=== PATIENT | female | born 1995 | race African-American/Black ===

== ENCOUNTER 2017-03-04 10:56 | Emergency (ER) | payer OTHER ==
[2017-03-04 11:14] VITALS: BMI 29.7
--- NOTE | 2017-03-04 11:45 | DR.FI ---
HPI - Time Seen Time seen: 11:10 - PCP Primary Care Physician: ESTELA - Complaint Chief Complaint:: "MY MOUTH STARTED TWISTING THIS MORNING" Chief Complaint Doctors Comments: Patient states that her lower jaw started twitching and deviated to the right. She denies fever,vomitng or diarrhea. She denies any neurological problems. She does admits to loosing her baby two months ago at 2 months pregnent. Self Treatment fo Chief Complaint: NONE - Source History Provided: Patient - Mode of Arrival Mode of Arrival: EMS - Timing Onset of Chief Complaint: 03/04/17 PMH - PMH Past Medical History: No Past Surgical History: No - Family History History of Family Medical Conditions: Yes Family Medical History: Hypertension - Social History Does patient currently use any type of tobacco product: No Have you used tobacco products in the last 12 months: No Type of Tobacco Use: None Does any household member use tobacco: No Alcohol Use: None Do you use any recreational Drugs:: No Lives With: Alone Lives Where: Home - infectious screening In the last 2 months have you had wt loss of >10#?: NO Have you had fever, night sweats or hemotysis?: No Have you traveled outside the country in the last 6 months?: No Isolation: Standard ROS - Review of Systems Constitutional: No Symptoms Reported Eyes: No Symptoms Reported ENTM: No Symptoms Reported Respiratoy: No Symptoms Reported Cardiovascular: No Symptoms Reported Gastrointestinal/Abdominal: No Symptoms Reported Genitourinary: No Symptoms Reported Neurological: No Symptoms Reported, Speech Problem Musculoskeletal: No Symptoms Reported Integumentary: No Symptoms Reported Hematologic/Lymphatic: No Symptoms Reported Endocrine: No Symptoms Reported Psychiatric: No Symptoms Reported All Other Systems: Reviewed and Negative PE - Vital Signs Vitals: Temperature 98.1 F Pulse Rate [Apical] 91 Pulse Rate 94 Respiratory Rate 18 Blood Pressure [Right Arm] 167/96 Blood Pressure 192/93 O2 Sat by Pulse Oximetry 100 - General Limitations: No Limitations General Appearance: Alert, In No Apparent Distress - Head Head Exam: Normal Inspection, Atraumatic - Eyes Eye exam: Normal Appearance, PERRL, EOMI Eyelids: Normal Inspection: Bilateral Pupils: Regular, Round: Bilateral Sclera/Conjunctival: Normal Inspection: Bilateral Anterior chamber: Cell/flare: Bilateral Posterior Chamber: Deferred: Bilateral - ENT ENT Exam: Normal Exam, Normal Oropharynx External Ear Exam: Normal External Inspection TM/Canal Exam: Bilateral Normal Nose Exam: Normal Nose Exam Mouth Exam: Normal Inspection Teeth Exam: Other (impacted left wisdom tooth) Throat Exam: Normal Inspection - Neck Neck Exam: Normal Inspection - Chest Chest Inspection: Normal Inspection - Respiratory Respiratory Exam: Normal Lung Sounds Bilat Respiratory Exam: Bilateral Clear to Auscultation - Cardiovascular Cardiovascular Exam: Regular Rate, Normal Rhythm - Abdominal Exam Abdominal Exam: Normal Inspection, Normal Bowel Sounds Abdominal Tenderness: negative: RUQ, RLQ, LUQ, LLQ, Epigastrium, Suprapubic, Diffuse, Mild, Moderate, Severe, Other - Extremities Extremities Exam: Normal Inspection - Back Back Exam: Normal Inspection - Neurologic Neurological Exam: Alert, Oriented X3, CN II-XII Intact Patient Oriented To: Person, Place Speech: Expressive Aphasia Cranial Nerve Exam: EOM Function (II, III, IV, ): Normal, Facial Sensation (V) : Normal, Facial Palsy (VII): Normal, Gag reflex (XI): Normal, Tongue Deviation : Normal - Psychiatric Psychiatric Exam: Normal Affect - Skin Skin Exam: Warm, Dry, Intact Type of Lesion: Rash Course - Treatment Treatment: NIH stroke scale 0 - Reevaluation 1st: Improved ROR - Labs Reviewed Result Diagrams: 03/04/17 11:40 03/04/17 11:40 Laboratory: WBC 9.4 X10^3/uL (3.6-10.0) 03/04/17 11:40 RBC 4.65 X10^6/uL (3.5-5.4) 03/04/17 11:40 Hgb 13.1 g/dL (12.0-16.0) 03/04/17 11:40 Hct 39.8 % (36.0-47.0) 03/04/17 11:40 MCV 85.6 fL (80.0-100.0) 03/04/17 11:40 MCH 28.2 pg (27.0-34.0) 03/04/17 11:40 MCHC 33.0 g/dL (33.0-35.0) 03/04/17 11:40 RDW 13.9 % (11.6-16.5) 03/04/17 11:40 Plt Count 260 X10^3/uL (150.0-450.0) 03/04/17 11:40 MPV 9.1 fL (7.4-11.0) 03/04/17 11:40 Neut % 60.7 % (42.0-75.0) 03/04/17 11:40 Lymph % 27.0 % (21.0-51.0) 03/04/17 11:40 Burt % 6.4 % (0.0-13.0) 03/04/17 11:40 Eos % 5.3 % (0.9-2.9) H 03/04/17 11:40 Baso % 0.6 % (0.2-1.0) 03/04/17 11:40 Neut # 5.7 x10^3/uL (2.2-4.8) H 03/04/17 11:40 Lymph # 2.5 X10^3/uL (1.3-2.9) 03/04/17 11:40 Burt # 0.6 x10^3/uL (0.3-0.8) 03/04/17 11:40 Eos # 0.5 x10^3/uL (0.0-0.2) H 03/04/17 11:40 Baso # 0.1 X10^3/uL (0.0-0.1) 03/04/17 11:40 Absolute Nucleated RBC 0.1 /100WBC 03/04/17 11:40 Sodium 140 mmol/L (136-145) 03/04/17 11:40 Corrected Sodium TNP 03/04/17 11:40 Potassium 3.8 mmol/L (3.5-5.1) 03/04/17 11:40 Chloride 104 mmol/L (98-107) 03/04/17 11:40 Carbon Dioxide 28.6 mmol/L (21-32) 03/04/17 11:40 BUN 11 mg/dL (7-18) 03/04/17 11:40 Creatinine 0.82 mg/dL (0.55-1.02) 03/04/17 11:40 Est GFR (MDRD) Af Amer > 60 (>60) 03/04/17 11:40 Est GFR (MDRD) Non-Af > 60 (>60) 03/04/17 11:40 Glucose 102 mg/dL (65-99) H 03/04/17 11:40 Calcium 9.0 mg/dL (8.5-10.1) 03/04/17 11:40 Specimen Type Clean catch urine 03/04/17 12:05 Urine Color Yellow (YELLOW) 03/04/17 12:05 Urine Appearance Clear (CLEAR) 03/04/17 12:05 Urine pH 8.0 (5.0 - 8.0) 03/04/17 12:05 Ur Specific [place] 1.010 (1.000-1.030) 03/04/17 12:05 Urine Protein 1+ (NEGATIVE) 03/04/17 12:05 Urine Glucose (UA) Negative (NEGATIVE) 03/04/17 12:05 Urine Ketones Negative (NEGATIVE) 03/04/17 12:05 Urine Occult Blood 5+ (NEGATIVE) 03/04/17 12:05 Urine Nitrite Negative (NEGATIVE) 03/04/17 12:05 Urine Bilirubin Negative (NEGATIVE) 03/04/17 12:05 Urine Urobilinogen Normal (NORMAL) 03/04/17 12:05 Ur Leukocyte Esterase Negative (NEGATIVE) 03/04/17 12:05 Urine RBC 5-10 /HPF (NEGATIVE) 03/04/17 12:05 Urine WBC 0-3 /HPF (NEGATIVE) 03/04/17 12:05 Ur Squamous Epith Cells Moderate /HPF (NEGATIVE) 03/04/17 12:05 Urine Bacteria Trace /HPF (NEGATIVE) 03/04/17 12:05 Ur Culture Indicated? No/not indicated 03/04/17 12:05 Urine Opiates Screen Negative (NEG=<300) 03/04/17 12:05 Urine Methadone Screen Negative (NEG=<300) 03/04/17 12:05 Ur Barbiturates Screen Negative (NEG=<200) 03/04/17 12:05 Ur Phencyclidine Scrn Negative (NEG=<25) 03/04/17 12:05 Ur Amphetamines Screen Negative (NEG=<1000) 03/04/17 12:05 U Benzodiazepines Scrn Positive (NEG=<200) A 03/04/17 12:05 Urine Cocaine Screen Negative (NEG=<300) 03/04/17 12:05 U Marijuana (THC) Screen Negative (NEG=<50) 03/04/17 12:05 Streptococcus Screen Negative (NEGATIVE) 03/04/17 12:05 - XRAY XRAY Interpreted by: Radiologist (Brain CT: The ventircles are normal. No intracranial hemorrhage or edema is seen. There is no extra-axial fluid collection or mass. The bones are intact. There is mucosal thickening in the ethmoid and maxillary sinuses.. Impression:No acute intracranial abnormality seen...Mild chronic sinusitis) - Diagnosis Discharge Problem: Chronic sinusitis of both maxillary sinuses, Impacted tooth, Hemifacial spasm, Elevated BP without diagnosis of hypertension - Discharge Plan Condition: Stable - Follow ups/Referrals Follow ups/Referrals: NFD,None [Primary Care Provider] - 3 days - Instructions
[2017-03-04 11:51] LABS: BASOPHILS # (AUTO) 0.1 X10^3/uL (0.0-0.1); BASOPHILS % (AUTO) 0.6 % (0.2-1.0); EOSINOPHILS # (AUTO) 0.5 x10^3/uL (0.0-0.2); EOSINOPHILS % (AUTO) 5.3 % (0.9-2.9); HEMATOCRIT 39.8 % (36.0-47.0); HEMOGLOBIN 13.1 g/dL (12.0-16.0); LYMPHOCYTES # (AUTO) 2.5 X10^3/uL (1.3-2.9); MEAN CORPUSCULAR HEMOGLOBIN 28.2 pg (27.0-34.0); MEAN CORPUSCULAR VOLUME 85.6 fL (80.0-100.0); MEAN PLATELET VOLUME 9.1 fL (7.4-11.0); MONOCYTES # (AUTO) 0.6 x10^3/uL (0.3-0.8); MONOCYTES % (AUTO) 6.4 % (0.0-13.0); NEUTROPHILS # (AUTO) 5.7 x10^3/uL (2.2-4.8); NEUTROPHILS % (AUTO) 60.7 % (42.0-75.0); PLATELET COUNT 260 X10^3/uL (150.0-450.0); RED BLOOD COUNT 4.65 X10^6/uL (3.5-5.4); RED CELL DISTRIBUTION WIDTH 13.9 % (11.6-16.5); WHITE BLOOD COUNT 9.4 X10^3/uL (3.6-10.0)
--- NOTE | 2017-03-04 11:55 | CT ---
Indication: Slurred speech and facial drooping . Exam: CT head without contrast. Technique: Routine transaxial images were obtained through the brain without contrast Findings: The ventricles are normal. No intracranial hemorrhage or edema is seen. There is no extra-a xial fluid collection or mass. The bones are intact. There is mucosal thickening in the ethmoid and m axillary sinuses. Impression: No acute intracranial abnormality seen. If the patient is persistently symptomatic , suggest MRI rahul elation . Mild chronic sinusitis. Reported By:
[2017-03-04 11:58] LABS: BLOOD UREA NITROGEN 11 mg/dL (7-18); CARBON DIOXIDE 28.6 mmol/L (21-32); CHLORIDE 104 mmol/L (98-107); CREATININE 0.82 mg/dL (0.55-1.02); SODIUM 140 mmol/L (136-145); eGFR BLACK RACES > 60 (>60); eGFR NON BLACK RACES > 60 (>60)
[2017-03-04] MEDS ORDERED: TORADOL 30 MG VIAL IVP ONE (12:19)
[2017-03-04] MEDS ORDERED: TORADOL 30 MG VIAL ONE (12:20)
[2017-03-04 12:23] LABS: BILIRUBIN,URINE NEGATIVE (NEGATIVE); BLOOD/HEMOGLOBIN,URINE 5+ (NEGATIVE); GLUCOSE, URINE NEGATIVE (NEGATIVE); KETONES,URINE NEGATIVE (NEGATIVE); LEUKOCYTE ESTERASE ,URINE NEGATIVE (NEGATIVE); NITRITES,URINE NEGATIVE (NEGATIVE); PROTEIN,URINE 1+ (NEGATIVE); UROBILINOGEN,URINE NORMAL (NORMAL)
[2017-03-04] MEDS ORDERED: CATAPRES TAB 0.1 MG PO ONE (12:25)
[2017-03-04] MEDS ORDERED: CATAPRES TAB 0.1 MG ONE (12:30)
[2017-03-04 12:35] LABS: APPEARANCE,URINE CLEAR (CLEAR); COLOR,URINE YELLOW (YELLOW); SQUAMOUS EPITHELIAL CELL,UR MODERATE /HPF (NEGATIVE)
[2017-03-04 12:36] LABS: BACTERIA,URINE TRACE /HPF (NEGATIVE)
[2017-03-04 12:51] VITALS: BP 157/100
== END 2017-03-04 12:52 | disposition home or self-care (01) ==
LOC: ER 10:56
DX: J32.9 Chronic sinusitis, unspecified (principal); J01.00 Acute maxillary sinusitis, unspecified; K01.1 Impacted teeth; G51.3 Clonic hemifacial spasm; R03.0 Elevated blood-pressure reading, without diagnosis of hypertension
CPT/HCPCS: 36415; 70450; 80048; 80307; 81001; 85025; 87070; 87077; 87186; 87880; 96365; 96374; 99283; A4222; G0434; J1885

== ENCOUNTER 2017-03-31 19:25 | Emergency (ER) | payer OTHER ==
[2017-03-31 19:28] VITALS: BP 137/87; BMI 27.3
== END 2017-03-31 20:45 | disposition left against medical advice (07) ==
LOC: ER 19:32
DX: H92.02 Otalgia, left ear (principal)
CPT/HCPCS: 99281

== ENCOUNTER 2017-04-09 10:29 | Emergency (ER) | payer OTHER ==
[2017-04-09 10:35] VITALS: BP 130/63; BMI 27.3
--- NOTE | 2017-04-09 10:59 | DR.URIAD ---
HPI - Time Seen Time seen: 10:55 - PCP Primary Care Physician: BRIAN - HPI Comment HPI Comment: HISTORY BELOW. - Complaint Chief Complaint Doctors Comments: COUGH, COLD, CONGESTION TIMES 2 DAYS. HEADACHE FEVER AND POST NASAL DRIP. WORSE TODAY. Chief Complaint:: PT C/O 2 DAYS AGO HAVING, CCC, FEVER AND SORE THROAT"... Self Treatment fo Chief Complaint: NONE,, - Reviewed Nurses Notes Reviewed: Yes - Source History Provided: Patient - Mode of Arrival Mode of Arrival: Ambulatory - Timing Onset of Chief Complaint: 04/07/17 - Context Recent Treated Infections: None History of Respiratory: None - Quality Quality of Cough: Nonproductive Rhinorrhea: Green Shortness of Breath: none - Associated Signs and Symptoms Other Signs and Symptoms: Cough, Fever, Myalgias, Nasal Symptoms, Sore Throat, URI PMH - PMH Past Medical History: Yes Past Medical History: Hypertension Past Surgical History: No - Family History History of Family Medical Conditions: No Family Medical History: Hypertension - Social History Does patient currently use any type of tobacco product: No Have you used tobacco products in the last 12 months: No Type of Tobacco Use: None Does any household member use tobacco: No Alcohol Use: None Do you use any recreational Drugs:: No Lives With: Family Lives Where: Home - infectious screening In the last 2 months have you had wt loss of >10#?: NO Have you had fever, night sweats or hemotysis?: No Have you traveled outside the country in the last 6 months?: No Isolation: Standard ROS - Review of Systems Constitutional: No Symptoms Reported Eyes: No Symptoms Reported ENTM: Nose Discharge, Nose Congestion, Throat Pain. negative: Ear Pain Respiratoy: Moist Cough. negative: Short of Breath, Wheezing, Hemoptysis Cardiovascular: No Symptoms Reported Gastrointestinal/Abdominal: No Symptoms Reported Genitourinary: No Symptoms Reported Neurological: No Symptoms Reported Musculoskeletal: No Symptoms Reported Integumentary: No Symptoms Reported Hematologic/Lymphatic: No Symptoms Reported Endocrine: No Symptoms Reported All Other Systems: Reviewed and Negative PE - Vital Signs Vitals: Temperature 97.3 F Pulse Rate 96 Respiratory Rate 18 Blood Pressure [Right Arm] 157/100 Blood Pressure 130/63 O2 Sat by Pulse Oximetry 110 - General Limitations: No Limitations General Appearance: Alert - Head Head Exam: Normal Inspection - Eyes Eye exam: Normal Appearance - ENT ENT Exam: Normal External Ear Exam. negative: Normal Oropharynx (THROAT RED.) , TM's Normal Bilaterally (TM BULGING.) External Ear Exam: Normal External Inspection TM/Canal Exam: Bilateral Bulging Nose Exam: Sinus Tenderness Mouth Exam: Normal Inspection Throat Exam: Tonsillar Erythema, Tonsillomegaly. negative: Tonsillar Exudate - Neck Neck Exam: Trachea Midline - Chest Chest Inspection: Symmetric Chest Wall Rise - Respiratory Respiratory Exam: Normal Lung Sounds Bilat Respiratory Exam: Bilateral Clear to Auscultation - Cardiovascular Cardiovascular Exam: Regular Rate, Normal Rhythm, Normal Heart Sounds - Abdominal Exam Abdominal Exam: Normal Bowel Sounds, Soft. negative: Tenderness - Extremeties Extremities Exam: Normal Inspection - Back Back Exam: Normal Inspection - Neurologic Neurological Exam: Alert, Oriented X3 - Psychiatric Psychiatric Exam: Normal Affect, Normal Mood - Skin Skin Exam: Normal Color MDM - Differential Diagnosis Differential Diagnosis: Influenza A, Influenza B, Otitis media, Streptococcal pharyngitis, Viral pharyngitis, Sinsusitis, URI Course - Treatment Treatment: SEE ORDERS. - Education/Counseling Education/Counseling: Patient, Education Educated On: Diagnosis, Needs for Follow Up ROR - Labs Reviewed Laboratory Results Reviewed?: Yes Laboratory: Influenza Type A (PCR) Negative (NEGATIVE) 04/09/17 10:45 Influenza Type B (PCR) Negative (NEGATIVE) 04/09/17 10:45 Streptococcus Screen Negative (NEGATIVE) 04/09/17 10:45 - Diagnosis Discharge Problem: Pharyngitis Qualifiers: Pharyngitis/tonsillitis etiology: other specified organisms Qualified Code(s): J02.8 - Acute pharyngitis due to other specified organisms Sinusitis Qualifiers: Sinusitis location: unspecified location Chronicity: acute Recurrence: not specified as recurrent Qualified Code(s): J01.90 - Acute sinusitis, unspecified - Discharge Plan Condition: Stable Prescriptions: Amoxicillin [Amoxil 875 mg] 875 mg PO TID #30 tab Cetirizine HCl [Zyrtec Tab 10 mg] 10 mg PO DAILY #30 tab Ibuprofen [MOTRIN TAB 600 MG *] 600 mg PO TID PRN #20 tab PRN Reason: Pain/Inflammation - Follow ups/Referrals Follow ups/Referrals: NFD,None [Primary Care Provider] - 3 days - Instructions Instructions: Tonsillitis, [id number], Sinus Headache, Sinus Headache, Easy- to-Read
== END 2017-04-09 11:40 | disposition home or self-care (01) ==
LOC: ER 10:38
DX: J02.8 Acute pharyngitis due to other specified organisms (principal); J01.80 Other acute sinusitis
CPT/HCPCS: 87070; 87502; 87880; 99282

== ENCOUNTER 2017-05-26 09:53 | Emergency (ER) | payer OTHER ==
[2017-05-26 09:56] VITALS: BP 142/87; BMI 30.4
--- NOTE | 2017-05-26 10:21 | DR.GENAD ---
HPI - PCP Primary Care Physician: NFD - Complaint/Symptoms Chief Complaint Doctors Comments: Patient presented with nasal congestion, sore throat and cough of one days duration. She denies fever. She also complains of stomach paiin. Chief Complaint:: PATIENT STATED THAT HER THROAT AND STOMACH HURTS. SHE STATED THAT IT ALL STARTED LAST. - Source History Provided: Patient - Mode of Arrival Mode of Arrival: Ambulatory - Timing Onset of Chief Complaint: 05/25/17 PMH - PMH Past Medical History: Yes Past Medical History: Hypertension Past Surgical History: No - Family History History of Family Medical Conditions: Yes Family Medical History: Hypertension - Social History Does patient currently use any type of tobacco product: No Have you used tobacco products in the last 12 months: No Type of Tobacco Use: None Does any household member use tobacco: No Alcohol Use: None Do you use any recreational Drugs:: No Lives With: Family Lives Where: Home - infectious screening In the last 2 months have you had wt loss of >10#?: NO Have you had fever, night sweats or hemotysis?: No Have you traveled outside the country in the last 6 months?: No Isolation: Standard ROS - Review of Systems Constitutional: No Symptoms Reported Eyes: No Symptoms Reported ENTM: No Symptoms Reported Respiratoy: No Symptoms Reported Cardiovascular: No Symptoms Reported Gastrointestinal/Abdominal: No Symptoms Reported Genitourinary: No Symptoms Reported Neurological: No Symptoms Reported Musculoskeletal: No Symptoms Reported Integumentary: No Symptoms Reported Hematologic/Lymphatic: No Symptoms Reported Endocrine: No Symptoms Reported Psychiatric: No Symptoms Reported All Other Systems: Reviewed and Negative PE - Vital Signs Vitals: Temperature 99.2 F Pulse Rate 118 Respiratory Rate 18 Blood Pressure [Right Arm] 157/100 Blood Pressure 142/87 O2 Sat by Pulse Oximetry 100 - General General Appearance: Alert, In No Apparent Distress - Head Head Exam: Normal Inspection, Atraumatic - Eyes Eye exam: Normal Appearance, PERRL, EOMI - ENT ENT Exam: Normal Exam External Ear Exam: Normal External Inspection TM/Canal Exam: Bilateral Normal Nose Exam: Normal Nose Exam Mouth Exam: Normal Inspection Throat Exam: Normal Inspection - Neck Neck Exam: Normal Inspection, Full ROM - Chest Chest Inspection: Normal Inspection, Symmetric Chest Wall Rise - Respiratory Respiratory Exam: Normal Lung Sounds Bilat Respiratory Exam: Bilateral Clear to Auscultation - Cardiovascular Cardiovascular Exam: Regular Rate, Normal Rhythm - Abdominal Exam Abdominal Exam: Normal Inspection, Normal Bowel Sounds Abdominal Tenderness: Suprapubic - Extremities Extremities Exam: Normal Inspection, Full ROM - Back Back Exam: Normal Inspection, Full ROM - Neurologic Neurological Exam: Alert, Oriented X3, CN II-XII Intact - Skin Skin Exam: Warm, Dry, Intact ROR - Labs Reviewed Laboratory Results Reviewed?: Yes (UTI:wbc 20-25;3+leuk,20-25wbc,2+bld,;strep positive) Laboratory: Specimen Type Clean catch urine 05/26/17 10:25 Urine Color Yellow (YELLOW) 05/26/17 10:25 Urine Appearance Slightly hazy (CLEAR) 05/26/17 10:25 Urine pH 7.0 (5.0 - 8.0) 05/26/17 10:25 Ur Specific [place] 1.010 (1.000-1.030) 05/26/17 10:25 Urine Protein 2+ (NEGATIVE) 05/26/17 10:25 Urine Glucose (UA) Negative (NEGATIVE) 05/26/17 10:25 Urine Ketones Negative (NEGATIVE) 05/26/17 10:25 Urine Occult Blood 2+ (NEGATIVE) 05/26/17 10:25 Urine Nitrite Negative (NEGATIVE) 05/26/17 10:25 Urine Bilirubin Negative (NEGATIVE) 05/26/17 10:25 Urine Urobilinogen 2+ (NORMAL) 05/26/17 10:25 Ur Leukocyte Esterase 3+ (NEGATIVE) 05/26/17 10:25 Urine RBC 5-10 /HPF (NONE SEEN) 05/26/17 10:25 Urine WBC 20-25 /HPF (NONE SEEN) 05/26/17 10:25 Ur Squamous Epith Cells Many /HPF (NEGATIVE) 05/26/17 10:25 Amorphous Sediment Trace /HPF (NEGATIVE) 05/26/17 10:25 Urine Bacteria Trace /HPF (NEGATIVE) 05/26/17 10:25 Urine Mucus Few /HPF (NEGATIVE) 05/26/17 10:25 Ur Culture Indicated? No/not indicated 05/26/17 10:25 S. pyogenes (TEM-PCR) Detected (NOT DETECT) A 05/26/17 10:21 - Diagnosis Discharge Problem: Strep throat UTI (urinary tract infection) Qualifiers: Urinary tract infection type: acute cystitis Hematuria presence: with hematuria Qualified Code(s): N30.01 - Acute cystitis with hematuria - Discharge Plan Condition: Stable - Follow ups/Referrals Follow ups/Referrals: NFD,None [Primary Care Provider] - 3 days - Instructions
[2017-05-26 11:03] LABS: BILIRUBIN,URINE NEGATIVE (NEGATIVE); BLOOD/HEMOGLOBIN,URINE 2+ (NEGATIVE); GLUCOSE, URINE NEGATIVE (NEGATIVE); KETONES,URINE NEGATIVE (NEGATIVE); LEUKOCYTE ESTERASE ,URINE 3+ (NEGATIVE); NITRITES,URINE NEGATIVE (NEGATIVE); PROTEIN,URINE 2+ (NEGATIVE); UROBILINOGEN,URINE 2+ (NORMAL)
[2017-05-26 11:13] LABS: APPEARANCE,URINE SLIGHTLY HAZY (CLEAR); BACTERIA,URINE TRACE /HPF (NEGATIVE); COLOR,URINE YELLOW (YELLOW); SQUAMOUS EPITHELIAL CELL,UR MANY /HPF (NEGATIVE)
[2017-05-26 11:14] LABS: AMORPHOUS SEDIMENT,UR TRACE /HPF (NEGATIVE); MUCUS,URINE FEW /HPF (NEGATIVE)
== END 2017-05-26 11:49 | disposition home or self-care (01) ==
LOC: ER 10:01
DX: J02.0 Streptococcal pharyngitis (principal); N30.01 Acute cystitis with hematuria
CPT/HCPCS: 81001; 87651; 99282

== ENCOUNTER 2017-06-13 23:55 | Emergency (ER) | payer OTHER ==
[2017-06-14 00:03] VITALS: BP 130/90; BMI 29.6
--- NOTE | 2017-06-14 00:18 | DR.GENAD ---
HPI - HPI Comment HPI Comment: TREATED FOR STREP THROAT 2 WEEKS AGO. NOW SYMPTOM HAVE STARTED AGAIN. - Complaint/Symptoms Chief Complaint Doctors Comments: SORE THROAT TIMES 2 WEEKS. Chief Complaint:: PT C/O SORE THROAT. ONSET 2 DAYS. DX WITH STREP THROAT 2 WEEKS AGO. STATES SHE ISNT ANY BETTER AFTER THE MEDS. - Nurses notes reviewed Nurses Notes Review: Yes - Source History Provided: Patient - Mode of Arrival Mode of Arrival: Ambulatory - Timing Onset of Chief Complaint: 06/11/17 Came on: Gradually - Duration Duration: Constant Duration: Days - Severity Severity: Moderate PMH - PMH Past Medical History: Yes Past Medical History: Hypertension Past Surgical History: No - Family History History of Family Medical Conditions: Yes Family Medical History: Diabetes Mellitus, Hypertension - Social History Do you use any recreational Drugs:: No - infectious screening Have you traveled outside the country in the last 6 months?: No ROS - Review of Systems Constitutional: No Symptoms Reported Eyes: No Symptoms Reported ENTM: Throat Pain. negative: Ear Pain, Nose Discharge, Nose Congestion Respiratoy: No Symptoms Reported. negative: Productive Cough, Short of Breath, Wheezing, Hemoptysis Cardiovascular: No Symptoms Reported Gastrointestinal/Abdominal: No Symptoms Reported Genitourinary: No Symptoms Reported Neurological: No Symptoms Reported Musculoskeletal: No Symptoms Reported Integumentary: No Symptoms Reported Hematologic/Lymphatic: No Symptoms Reported Endocrine: No Symptoms Reported All Other Systems: Reviewed and Negative PE - Vital Signs Vitals: Temperature 97.8 F Pulse Rate 89 Respiratory Rate 18 Blood Pressure [Right Arm] 157/100 Blood Pressure 130/90 O2 Sat by Pulse Oximetry 98 - General Limitations: No Limitations General Appearance: Alert - Head Head Exam: Normal Inspection - Eyes Eye exam: Normal Appearance - ENT ENT Exam: Normal External Ear Exam External Ear Exam: Normal External Inspection TM/Canal Exam: Bilateral Normal Nose Exam: Normal Nose Exam Mouth Exam: Normal Inspection Throat Exam: Tonsillar Erythema, Tonsillomegaly. negative: Tonsillar Exudate - Neck Neck Exam: Normal Inspection - Chest Chest Inspection: Symmetric Chest Wall Rise - Respiratory Respiratory Exam: Normal Lung Sounds Bilat Respiratory Exam: Bilateral Clear to Auscultation - Cardiovascular Cardiovascular Exam: Regular Rate, Normal Rhythm, Normal Heart Sounds - Abdominal Exam Abdominal Exam: Normal Bowel Sounds, Soft. negative: Tenderness - Extremities Extremities Exam: Normal Inspection - Back Back Exam: Normal Inspection - Neurologic Neurological Exam: Alert, Oriented X3 - Psychiatric Psychiatric Exam: Normal Affect, Normal Mood - Skin Skin Exam: Normal Color MDM - Additional Information Additional Information Obtained From: Family - Differential Diagnosis Differential Diagnosis: STREP THROAT, MONO, Course - Treatment Treatment: SEE ORDERS. - Education/Counseling Education/Counseling: Patient, Family, Education Educated On: Diagnosis, Needs for Follow Up ROR - Labs Reviewed Laboratory Results Reviewed?: Yes Result Diagrams: 06/14/17 01:00 Laboratory: WBC 7.6 X10^3/uL (3.6-10.0) 06/14/17 01:00 RBC 3.85 X10^6/uL (3.5-5.4) 06/14/17 01:00 Hgb 11.3 g/dL (12.0-16.0) L 06/14/17 01:00 Hct 33.3 % (36.0-47.0) L 06/14/17 01:00 MCV 86.3 fL (80.0-100.0) 06/14/17 01:00 MCH 29.3 pg (27.0-34.0) 06/14/17 01:00 MCHC 34.0 g/dL (33.0-35.0) 06/14/17 01:00 RDW 14.3 % (11.6-16.5) 06/14/17 01:00 Plt Count 262 X10^3/uL (150.0-450.0) 06/14/17 01:00 MPV 9.3 fL (7.4-11.0) 06/14/17 01:00 Neut % (Auto) 48.2 % (42.0-75.0) 06/14/17 01:00 Lymph % (Auto) 29.8 % (21.0-51.0) 06/14/17 01:00 [place] % (Auto) 8.8 % (0.0-13.0) 06/14/17 01:00 Eos % (Auto) 12.0 % (0.9-2.9) H 06/14/17 01:00 Baso % (Auto) 1.2 % (0.2-1.0) H 06/14/17 01:00 Neut # (Auto) 3.7 x10^3/uL (2.2-4.8) 06/14/17 01:00 Lymph # (Auto) 2.3 X10^3/uL (1.3-2.9) 06/14/17 01:00 [place] # (Auto) 0.7 x10^3/uL (0.3-0.8) 06/14/17 01:00 Eos # (Auto) 0.9 x10^3/uL (0.0-0.2) H 06/14/17 01:00 Baso # (Auto) 0.1 X10^3/uL (0.0-0.1) 06/14/17 01:00 Absolute Nucleated RBC 0.2 /100WBC 06/14/17 01:00 Monoscreen Negative (NEGATIVE) 06/14/17 01:00 S. pyogenes (TEM-PCR) Not detected (NOT DETECT) 06/14/17 00:18 - Diagnosis Discharge Problem: Sore throat Sinusitis Qualifiers: Sinusitis location: unspecified location Chronicity: acute Recurrence: not specified as recurrent Qualified Code(s): J01.90 - Acute sinusitis, unspecified - Discharge Plan Disposition: 01 HOME, SELF-CARE Condition: Stable Prescriptions: Azithromycin [Zithromax] 1 dose PO DAILY #6 tab Ibuprofen [MOTRIN TAB 800 MG *] 800 mg PO Q8H PRN #30 tab PRN Reason: Pain/Inflammation - Follow ups/Referrals Follow ups/Referrals: NFD,None [Primary Care Provider] - 3 days - Instructions Instructions: Pharyngitis, Sinusitis, Adult Additional Instructions: RETURN TO ED IF WORSE.
[2017-06-14 01:24] LABS: BASOPHILS # (AUTO) 0.1 X10^3/uL (0.0-0.1); BASOPHILS % (AUTO) 1.2 % (0.2-1.0); EOSINOPHILS # (AUTO) 0.9 x10^3/uL (0.0-0.2); HEMATOCRIT 33.3 % (36.0-47.0); HEMOGLOBIN 11.3 g/dL (12.0-16.0); LYMPHOCYTES # (AUTO) 2.3 X10^3/uL (1.3-2.9); LYMPHOCYTES % (AUTO) 29.8 % (21.0-51.0); MEAN CORPUSCULAR HEMOGLOBIN 29.3 pg (27.0-34.0); MEAN CORPUSCULAR VOLUME 86.3 fL (80.0-100.0); MEAN PLATELET VOLUME 9.3 fL (7.4-11.0); MONOCYTES # (AUTO) 0.7 x10^3/uL (0.3-0.8); MONOCYTES % (AUTO) 8.8 % (0.0-13.0); NEUTROPHILS # (AUTO) 3.7 x10^3/uL (2.2-4.8); NEUTROPHILS % (AUTO) 48.2 % (42.0-75.0); PLATELET COUNT 262 X10^3/uL (150.0-450.0); RED BLOOD COUNT 3.85 X10^6/uL (3.5-5.4); RED CELL DISTRIBUTION WIDTH 14.3 % (11.6-16.5); WHITE BLOOD COUNT 7.6 X10^3/uL (3.6-10.0)
== END 2017-06-14 02:44 | disposition home or self-care (01) ==
LOC: ER 23:58
DX: J02.9 Acute pharyngitis, unspecified (principal); J01.80 Other acute sinusitis
CPT/HCPCS: 36415; 85025; 86308; 87651; 99281; 99282; 99283

== ENCOUNTER 2019-01-05 03:50 | Observation (INO) ==
[2019-01-05 04:10] VITALS: BP 150/85; BMI 28.1
[2019-01-05 04:41] LABS: BASOPHILS # (AUTO) 0.1 X10^3/uL (0.0-0.1); BASOPHILS % (AUTO) 0.8 % (0.2-1.0); EOSINOPHILS # (AUTO) 0.7 x10^3/uL (0.0-0.2); EOSINOPHILS % (AUTO) 6.3 % (0.9-2.9); HEMATOCRIT 34.3 % (36.0-47.0); HEMOGLOBIN 11.4 g/dL (12.0-16.0); LYMPHOCYTES # (AUTO) 2.5 X10^3/uL (1.3-2.9); LYMPHOCYTES % (AUTO) 22.5 % (21.0-51.0); MEAN CORPUSCULAR HEMOGLOBIN 29.2 pg (27.0-34.0); MEAN CORPUSCULAR HGB CONC 33.1 g/dL (33.0-35.0); MEAN CORPUSCULAR VOLUME 88.1 fL (80.0-100.0); MEAN PLATELET VOLUME 9.5 fL (7.4-11.0); MONOCYTES % (AUTO) 9.1 % (0.0-13.0); NEUTROPHILS # (AUTO) 6.7 x10^3/uL (2.2-4.8); NEUTROPHILS % (AUTO) 61.3 % (42.0-75.0); PLATELET COUNT 224 X10^3/uL (150.0-450.0); RED CELL DISTRIBUTION WIDTH 13.2 % (11.6-16.5)
--- NOTE | 2019-01-05 06:02 | ED.ABDFE ---
HPI Time Seen Time Seen by Provider: 01/05/19 04:13 PCP Primary Care Physician: [facility] Chief Complaint Comments: Patient is a 23-year-old female who presents with vaginal bleeding and passing of clots. According to her NUCLEAR PHYSICIAN o ut of [place] she is 11 weeks . Earlier this morning she went to the bathroom and afterwards she started passing clots and having abdominal pain. This is when she presented to the ED.She denies feelings of lightheadedness, dizziness, shortness of breath, heavy bleeding. Chief Complaint:: PT C/O BLEEDING WHILE 11 WEEKS PT PASSING WHAT APPEARS TO BE BLOOD AND TISSUE PT C/O SEVERE CRAMPING Source History Provided: Patient Mode of arrival Mode of Arrival: Ambulatory Timing Onset of Chief Complaint: 01/05/19 PMH PMH Past Medical History: Yes Past Medical History: Hypertension Past Surgical History: No Surgical History: No History Family History History of Family Medical Conditions: Yes Family Medical History: Hypertension Social History Does patient currently use any type of tobacco product: No Have you used tobacco products in the last 12 months: No Type of Tobacco Use: None Does any household member use tobacco: No Alcohol Use: None Do you use any recreational Drugs:: No Lives With: Family Lives Where: Home infectious screening In the last 2 months have you had wt loss of >10#?: NO Have you had fever, night sweats or hemotysis?: No Have you traveled outside the country in the last 6 months?: No Isolation: Standard ROS Review of Systems Constitutional: No Symptoms Reported Eyes: No Symptoms Reported ENTM: No Symptoms Reported Respiratoy: No Symptoms Reported Cardiovascular: No Symptoms Reported Gastrointestinal/Abdominal: Abdominal Pain and Nausea Genitourinary: Bleeding Neurological: No Symptoms Reported Integumentary: No Symptoms Reported Hematologic/Lymphatic: No Symptoms Reported Endocrine: No Symptoms Reported Psychiatric: No Symptoms Reported All Other Systems: Reviewed and Negative PE Vital Signs Vitals: Temperature 99.7 F Pulse Rate 89 Respiratory Rate 18 Blood Pressure [Left Arm] 151/100 Blood Pressure 150/85 O2 Sat by Pulse Oximetry 100 General Limitations: No Limitations General Appearance: Anxious and In Distress Head Head Exam: Normal Inspection, Atraumatic and Normocephalic Eyes Eye exam: Normal Appearance and EOMI ENT ENT Exam: Normal Exam, Normal Oropharynx and Normal External Ear Exam Neck Neck Exam: Normal Inspection and Full ROM Chest Chest Inspection: Normal Inspection Respiratory Respiratory Exam: Normal Lung Sounds Bilat Respiratory Exam: Bilateral: Clear to Auscultation Cardiovascular Cardiovascular Exam: Regular Rate and Normal Rhythm Abdominal Exam Abdominal Exam: Tenderness and Other (gravid) Extremeties Extremities Exam: Normal Inspection and Full ROM External Exam: Female: Other (vaginal bleeding ) : Speculum Exam (Female): Deferred : Bimanual Exam (female): Deferred Neurologic Neurological Exam: Alert, Oriented X3, CN II-XII Intact and Normal Gait Psychiatric Psychiatric Exam: Normal Affect and Normal Mood Skin Skin Exam: Warm, Dry, Intact and Normal Color MDM Additional Information Obtained From Additional information provided by: Old Records and Family Differential Diagnosis Differential Diagnosis- Considerations may include:: -Complete, -Incomplete and -Inevitable COURSE Treatment Treatment: Patient is a 23-year-old approximately 11 weeks of gestation. She has had previous miscarriage and a preemie baby. Patient has active bleeding and has been asked large clots she still has moderate to mild pain in the abd omen and head. Pain was treated with Nubain in the ED patient was given fluids discussed plan with NUCLEAR PHYSICIAN Dr. Lazar advised admission trending H&H and transvaginal ultrasound for confirmation of complete passage of products Reevaluation 1st: Unchanged (04:20) 2nd: Unchanged (5:45 pt still in bed with family at bedside) 3rd: Unchanged (6:00 care plan discussed with pt, states she is still bleeding) Consultation Called: 05:55 Call Returned: 05:55 Consultation Comments: Dr. Lazar. advised US and trend H&H and have pt admitted. Education/Counseling Education/Counseling: Patient, Family, Education and Counseling Educated On: Treatment, Diagnosis, Prognosis and Needs for Follow Up ROR Labs Reviewed Laboratory Results Reviewed?: Yes Result Diagrams: 01/05/19 04:30 Laboratory: WBC 11.0 X10^3/uL (3.6-10.0) H 01/05/19 04:30 RBC 3.90 X10^6/uL (3.5-5.4) 01/05/19 04:30 Hgb 11.4 g/dL (12.0-16.0) L 01/05/19 04:30 Hct 34.3 % (36.0-47.0) L 01/05/19 04:30 MCV 88.1 fL (80.0-100.0) 01/05/19 04:30 MCH 29.2 pg (27.0-34.0) 01/05/19 04:30 MCHC 33.1 g/dL (33.0-35.0) 01/05/19 04:30 RDW 13.2 % (11.6-16.5) 01/05/19 04:30 Plt Count 224 X10^3/uL (150.0-450.0) 01/05/19 04:30 MPV 9.5 fL (7.4-11.0) 01/05/19 04:30 Neut % (Auto) 61.3 % (42.0-75.0) 01/05/19 04:30 Lymph % (Auto) 22.5 % (21.0-51.0) 01/05/19 04:30 [place] % (Auto) 9.1 % (0.0-13.0) 01/05/19 04:30 Eos % (Auto) 6.3 % (0.9-2.9) H 01/05/19 04:30 Baso % (Auto) 0.8 % (0.2-1.0) 01/05/19 04:30 Neut # (Auto) 6.7 x10^3/uL (2.2-4.8) H 01/05/19 04:30 Lymph # (Auto) 2.5 X10^3/uL (1.3-2.9) 01/05/19 04:30 [place] # (Auto) 1.0 x10^3/uL (0.3-0.8) H 01/05/19 04:30 Eos # (Auto) 0.7 x10^3/uL (0.0-0.2) H 01/05/19 04:30 Baso # (Auto) 0.1 X10^3/uL (0.0-0.1) 01/05/19 04:30 Absolute Nucleated RBC 0.0 /100WBC 01/05/19 04:30 HCG, Quant [id number] mIU/mL (0-6) H 01/05/19 04:30 Blood Type A POSITIVE 01/05/19 04:30 Opioid Opioid Risk Tool Age (Lino box if 16-45): Yes History of Preadolescent Sexual Abuse: No Total: 1 Total Score Risk Category: Low Risk Copyright: Samir DEVLIN predicting aberrant behaviors Diagnosis Discharge Problem: Concern about miscarriage without diagnosis Narrative Support Text: Admitted to Dr. Nagi AKHTAR for further observation and workup.
[2019-01-05] MEDS ORDERED: NUBAIN INJ 10 IVP ONE (06:15)
[2019-01-05] MEDS ORDERED: NUBAIN INJ 10 ONE (06:16)
[2019-01-05] MEDS ORDERED: NS 1000 ML 1,000 ML IV SCH (07:00)
--- NOTE | 2019-01-05 07:51 | US ---
HISTORY: , vaginal bleeding Study: Transvaginal Ob sonography Comparison: None Technique: Multiple grayscale sonographic images were obtained. Findings: The uterus was enlarged. Within the uterus there is a well-defined gestational sac containing a fetus. [place]-rump length 5.63 cm corresponding to 11 weeks 5 days. heart rate 153 beats per minute. There is a lucency adjacent to the gestational sac measuring 2.1 x 1.3 cm likely a subchorionic hemorrhage. The ovaries were not visualized. IMPRESSION: Single viable intrauterine gestation 11 weeks 5 days +/-1 week gestational age with an estimated date of delivery 07/22/2019 Lucency adjacent to the gestational sac measuring 2.1 x 1.3 cm likely a subchorionic hemorrhage Reported By:
== END 2019-01-05 08:14 | disposition left against medical advice (07) ==
LOC: ER 03:51 → MED/SURG 03:51
PROVIDERS: ADMIT Obstetrics & Gynecology Obstetrics; ATTEND Obstetrics & Gynecology Obstetrics
DX: I10 Essential (primary) hypertension; O46.91 Antepartum hemorrhage, unspecified, first trimester; Z3A.11 11 weeks gestation of pregnancy
CPT/HCPCS: 36415; 76801; 84702; 85025; 86900; 86901; 96365; 96367; 96374; 99284; A4222; G0378; J2300; J7030